=== PATIENT | male | born 1985 | race Caucasian/White ===

== ENCOUNTER 2016-11-24 16:07 | Emergency (ER) | payer MEDICAID ==
[~2016-11-24] VITALS: Ht 177.8 cm; Wt 132.9 kg
[2016-11-24 17:30] VITALS: BP 145/82
== END 2016-11-24 17:30 | disposition home or self-care (01) ==
LOC: ED 16:07
DX: S61.215A Laceration without foreign body of left ring finger without damage to nail, initial encounter (principal); W26.8XXA Contact with other sharp object(s), not elsewhere classified, initial encounter; Y93.89 Activity, other specified; Y99.8 Other external cause status; Y92.89 Other specified places as the place of occurrence of the external cause
CPT/HCPCS: 90715; J2001